=== PATIENT | male | born 1975 ===

== ENCOUNTER 2018-01-29 13:04 | Inpatient (IN) ==
[2018-01-29] MEDS ORDERED: GLUCAGON 1 MG VIAL IM PRN ×2 (13:10→13:12)
[2018-01-29] MEDS ORDERED: DEXTROSE 50% 25 GM/50 ML VIAL IV PRN ×2 (13:10→13:12)
[2018-01-29] MEDS ORDERED: MORPHINE 2 MG/1 ML SYRINGE IV PRN (13:12)
[2018-01-29] MEDS ORDERED: ZALEPLON 5 MG CAPSULE PO PRN (13:12)
[2018-01-29] MEDS ORDERED: ONDANSETRON 4 MG/2 ML VIAL IV PRN (13:12)
[2018-01-29] MEDS ORDERED: ACETAMINOPHEN 325 MG TABLET PO PRN (13:12)
[2018-01-29 16:27] LABS: Basophils % 0.2 % (0.0-0.8); Eosinophils # 0.1 10*3/uL (0.0-0.87); Eosinophils % 0.6 % (0.00-10.9); Hematocrit 36.3 VOL% (42.0-52.0); Immature Granulocytes % 0.4 %; Immature Granulocytes Absolute 0.05 #; Lymphocytes # 1.4 10*3/uL (1.4-4.0); Lymphocytes % 10.3 % (21.2-54.2); Mean Corpuscular HGB Conc 35.8 GM/DL (32-36); Mean Corpuscular Hemoglobin 35 PG (27-34); Mean Corpuscular Volume 97.3 FL (87-102); Mean Platelet Volume 9.4 FL (9.6-12.0); Monocytes # 1.3 10*3/uL (0.11-0.8); Monocytes % 9.4 % (1.7-12.7); Neutrophils % 79.1 % (38.7-73.9); Platelet Count 234 T/CUMM (130-400); Red Blood Count 3.73 MC/CUMM (3.8-5.5); Red Cell Distribution Width 13.2 % (9.3-17.3); White Blood Count 13.9 T/CUMM (4-12)
[2018-01-29] MEDS ORDERED: LORazepam 2 MG/1 ML VIAL IV PRN (16:34)
[2018-01-29 16:58] LABS: Calcium 8.1 MG/DL (8.5-10.1); Osmolality,Calculated 280.8 MOS/KG (273-304); Potassium 3.8 MMOL/L (3.5-5.1)
[2018-01-29] MEDS: INSULIN REGULAR 100 UNIT/ML SUBCUT SCH ×2 (17:34→21:40)
[2018-01-29] MEDS: MULTIVITAMIN (BEROCCA) TABLET PO SCH (17:35)
[2018-01-29] MEDS: THIAMINE 200 MG/2 ML VIAL IV SCH (17:36)
[2018-01-29] MEDS: NICOTINE 14 MG/24 HR PATCH TRANSDERM SCH (17:39)
[2018-01-29] MEDS: SODIUM CHLORIDE 0.9% 1,000 ML IV SCH (17:41)
[2018-01-29] MEDS: PIPERACILLIN/TAZOBACTAM 3,375 MG in SODIUM CHLORIDE 0.9% 100 ML IV SCH (17:42)
[2018-01-29] MEDS: ENOXAPARIN 40 MG/0.4 ML SYRINGE SUBCUT SCH (20:19)
[2018-01-29] MEDS: VANCOMYCIN INJ 1,000 MG in SODIUM CHLORIDE 0.9% 250 ML IV SCH (21:40)
[2018-01-29] MEDS: DOCUSATE SODIUM 100 MG CAPSULE PO SCH (21:40)
[2018-01-30] MEDS: PIPERACILLIN/TAZOBACTAM 3,375 MG in SODIUM CHLORIDE 0.9% 100 ML IV SCH ×3 (00:42→17:24)
[2018-01-30] MEDS: SODIUM CHLORIDE 0.9% 1,000 ML IV SCH ×3 (00:43→22:10)
[2018-01-30 02:54] LABS: Basophils # 0.1 10*3/uL (0.0-0.2); Basophils % 0.5 % (0.0-0.8); Eosinophils # 0.2 10*3/uL (0.0-0.87); Eosinophils % 1.7 % (0.00-10.9); Hematocrit 34.1 VOL% (42.0-52.0); Hemoglobin 11.8 GM/DL (14.0-18.0); Immature Granulocytes % 0.6 %; Immature Granulocytes Absolute 0.07 #; Lymphocytes # 2.1 10*3/uL (1.4-4.0); Lymphocytes % 18.7 % (21.2-54.2); Mean Corpuscular HGB Conc 34.6 GM/DL (32-36); Mean Corpuscular Hemoglobin 34 PG (27-34); Mean Corpuscular Volume 99.4 FL (87-102); Mean Platelet Volume 9.8 FL (9.6-12.0); Monocytes # 1.2 10*3/uL (0.11-0.8); Monocytes % 10.7 % (1.7-12.7); Neutrophils # 7.6 10*3/uL (1.4-7.4); Neutrophils % 67.8 % (38.7-73.9); Platelet Count 228 T/CUMM (130-400); Red Blood Count 3.43 MC/CUMM (3.8-5.5); Red Cell Distribution Width 13.2 % (9.3-17.3); White Blood Count 11.2 T/CUMM (4-12)
[2018-01-30 03:15] LABS: Albumin 2.3 G/DL (3.4-5.0); Bilirubin,Total 1.1 MG/DL (0.2-1.0); Calcium 7.9 MG/DL (8.5-10.1); Osmolality,Calculated 272.8 MOS/KG (273-304); Potassium 3.6 MMOL/L (3.5-5.1); Total Protein 5.9 G/DL (6.4-8.3)
[2018-01-30] MEDS: INSULIN REGULAR 100 UNIT/ML SUBCUT SCH ×4 (08:05→21:31)
[2018-01-30] MEDS: MULTIVITAMIN (BEROCCA) TABLET PO SCH (08:06)
[2018-01-30] MEDS: DOCUSATE SODIUM 100 MG CAPSULE PO SCH ×2 (08:06→21:31)
[2018-01-30] MEDS: BISACODYL 5 MG TABLET PO SCH (08:06)
[2018-01-30] MEDS: PANTOPRAZOLE 40 MG TABLET PO SCH ×2 (08:06→08:20)
[2018-01-30] MEDS: THIAMINE 200 MG/2 ML VIAL IV SCH (08:20)
[2018-01-30] MEDS: VANCOMYCIN INJ 1,000 MG in SODIUM CHLORIDE 0.9% 250 ML IV SCH ×2 (08:25→21:31)
[2018-01-30] MEDS: NICOTINE 14 MG/24 HR PATCH TRANSDERM SCH (10:21)
[2018-01-30 11:27] LABS: Apearance,Urine CLEAR (Clear); Bacteria,Urine Occasional /HPF (Few); Bilirubin,Urine Negative (Negative); Blood, Urine Negative (Negative); Glucose,Urine (UA) Negative (Negative); Ketones,Urine 20 mg/dL (Negative); Mucus,Urine Occasional /LPF (Occasional); Nitrite,Urine Negative (Negative); Protein,Urine Negative; RBC,Urine <1 /HPF (0-4); Urine Color Yellow (Yellow); WBC,Urine 1 /HPF (0-6)
[2018-01-30] MEDS ORDERED: ROPIVACAINE 0.5% 30 ML VIAL ONE (11:42)
[2018-01-30] MEDS ORDERED: SODIUM CHLORIDE 0.9% 100 ML IV ONE (15:25)
[2018-01-30] MEDS ORDERED: fentaNYL 100 MCG/2 ML VIAL ONE (15:25)
[2018-01-30] MEDS ORDERED: MIDAZOLAM 2 MG/2 ML VIAL ONE (15:25)
[2018-01-30] MEDS ORDERED: PROPOFOL 200 MG/20 ML VIAL IV ONE (15:25)
[2018-01-30] MEDS: ENOXAPARIN 40 MG/0.4 ML SYRINGE SUBCUT SCH (21:31)
[2018-01-31] MEDS: PIPERACILLIN/TAZOBACTAM 3,375 MG in SODIUM CHLORIDE 0.9% 100 ML IV SCH ×3 (01:45→17:40)
[2018-01-31 03:53] LABS: Basophils # 0.1 10*3/uL (0.0-0.2); Basophils % 0.6 % (0.0-0.8); Eosinophils # 0.2 10*3/uL (0.0-0.87); Eosinophils % 1.9 % (0.00-10.9); Hematocrit 34.9 VOL% (42.0-52.0); Hemoglobin 11.9 GM/DL (14.0-18.0); Immature Granulocytes % 0.5 %; Immature Granulocytes Absolute 0.04 #; Lymphocytes # 1.8 10*3/uL (1.4-4.0); Lymphocytes % 20.7 % (21.2-54.2); Mean Corpuscular HGB Conc 34.1 GM/DL (32-36); Mean Corpuscular Hemoglobin 33 PG (27-34); Mean Platelet Volume 9.6 FL (9.6-12.0); Neutrophils # 5.7 10*3/uL (1.4-7.4); Neutrophils % 65.3 % (38.7-73.9); Platelet Count 275 T/CUMM (130-400); Red Blood Count 3.56 MC/CUMM (3.8-5.5); White Blood Count 8.7 T/CUMM (4-12)
[2018-01-31 04:27] LABS: Calcium 8.2 MG/DL (8.5-10.1); Osmolality,Calculated 276.4 MOS/KG (273-304); Potassium 3.8 MMOL/L (3.5-5.1)
[2018-01-31] MEDS: INSULIN REGULAR 100 UNIT/ML SUBCUT SCH ×4 (09:11→21:58)
[2018-01-31] MEDS: PANTOPRAZOLE 40 MG TABLET PO SCH (09:16)
[2018-01-31] MEDS: BISACODYL 5 MG TABLET PO SCH (09:16)
[2018-01-31] MEDS: DOCUSATE SODIUM 100 MG CAPSULE PO SCH ×2 (09:17→21:58)
[2018-01-31] MEDS: MULTIVITAMIN (BEROCCA) TABLET PO SCH (09:17)
[2018-01-31] MEDS: NICOTINE 14 MG/24 HR PATCH TRANSDERM SCH (09:17)
[2018-01-31] MEDS: THIAMINE 200 MG/2 ML VIAL IV SCH (09:19)
[2018-01-31] MEDS: VANCOMYCIN INJ 1,000 MG in SODIUM CHLORIDE 0.9% 250 ML IV SCH ×2 (09:23→22:33)
[2018-01-31] MEDS: SODIUM CHLORIDE 0.9% 1,000 ML IV SCH (09:55)
[2018-01-31] MEDS: ENOXAPARIN 40 MG/0.4 ML SYRINGE SUBCUT SCH (21:57)
[2018-02-01] MEDS ORDERED: VANCOMYCIN INJ 1,000 MG in SODIUM CHLORIDE 0.9% 250 ML IV SCH (03:00)
[2018-02-01] MEDS: SODIUM CHLORIDE 0.9% 1,000 ML IV SCH (03:14)
[2018-02-01] MEDS: PIPERACILLIN/TAZOBACTAM 3,375 MG in SODIUM CHLORIDE 0.9% 100 ML IV SCH (04:32)
[2018-02-01] MEDS: INSULIN REGULAR 100 UNIT/ML SUBCUT SCH ×2 (09:06→12:36)
[2018-02-01] MEDS: THIAMINE 200 MG/2 ML VIAL IV SCH (09:36)
[2018-02-01] MEDS: MULTIVITAMIN (BEROCCA) TABLET PO SCH (09:37)
[2018-02-01] MEDS: BISACODYL 5 MG TABLET PO SCH (09:37)
[2018-02-01] MEDS: PANTOPRAZOLE 40 MG TABLET PO SCH (09:37)
[2018-02-01] MEDS: DOCUSATE SODIUM 100 MG CAPSULE PO SCH (09:37)
[2018-02-01] MEDS: NICOTINE 14 MG/24 HR PATCH TRANSDERM SCH (09:37)
[2018-02-01 11:18] VITALS: BP 139/83
[2018-02-01] MEDS ORDERED: cephALEXin 500 MG CAPSULE PO SCH (12:00)
== END 2018-02-01 16:00 | disposition home health service (06) | DRG 623 ==
LOC: SUATTDRO 15:02 → N.3E 15:02
PROVIDERS: ADMIT Family Medicine; ATTEND Internal Medicine Infectious Disease